=== PATIENT | male | born 1970 | race Caucasian/White ===

== ENCOUNTER 2019-04-25 00:20 | Emergency (ER) | payer OTHER ==
[2019-04-25] MEDS ORDERED: Take Home: Cyclobenzaprine 10 MG Tab, 4 Tab Pack PO ONE (01:01)
[2019-04-25] MEDS ORDERED: Take Home: Naproxen 500 MG Tab, 4 Tab Pack PO ONE (01:01)
--- NOTE | 2019-04-25 12:22 | EDM.PDOC ---
ED HPI GENERAL MEDICAL PROBLEM - General Chief Complaint: Flank Pain Stated Complaint: Left Flank Pain Time Seen by Provider: 04/25/19 00:35 Source of Information: Reports: Patient History Limitations: Reports: No Limitations - History of Present Illness INITIAL COMMENTS - FREE TEXT/NARRATIVE: Pt. presents to ER with complaints of L sided low back pain. Pt. states that the discomfort is worse with movement. Denies any specific injury but states that he works for the [employer] and does a lot of heavy lifting. Denies in saddle anesthesia or incontinence. No fever or chills. He states that the discomfort is located only on the L side. Denies any blood in his urine. Onset: Today Onset Date: 04/25/19 Location: Reports: Back Quality: Reports: Ache Left Flank Pain Score (Numeric/FACES): 4 - Related Data Allergies Allergy/AdvReac Type Severity Reaction Status Date / Time Penicillins Allergy Other Verified 04/25/19 00:30 Home Meds: Home Meds Aspirin [Adult Low Dose Aspirin EC] 81 mg PO DAILY 04/25/19 [History] Ergocalciferol (Vitamin D2) [Vitamin D2] 2,000 unit PO DAILY 04/25/19 [History] Lovastatin 20 mg PO DAILY 04/25/19 [History] Pantoprazole [ProTONIX] 40 mg PO DAILY 04/25/19 [History] Past Medical History HEENT History: Reports: Hard of Hearing Cardiovascular History: Reports: High Cholesterol Gastrointestinal History: Reports: GERD - Past Surgical History Other Male Surgeries/Procedures: Patient states he had an "infected gland" removed from his groin. Social & Family History - Tobacco Use Years of Tobacco use: 39 Packs/Tins Daily: 2 - Recreational Drug Use Recreational Drug Use: No ED ROS GENERAL - Review of Systems Review Of Systems: See Below Constitutional: Reports: No Symptoms HEENT: Reports: No Symptoms Respiratory: Reports: No Symptoms Cardiovascular: Reports: No Symptoms Endocrine: Reports: No Symptoms GI/Abdominal: Reports: No Symptoms : Reports: No Symptoms Musculoskeletal: Reports: Back Pain Skin: Reports: No Symptoms Neurological: Reports: No Symptoms Psychiatric: Reports: No Symptoms Hematologic/Lymphatic: Reports: No Symptoms Immunologic: Reports: No Symptoms ED EXAM, GENERAL - Physical Exam Exam: See Below Exam Limited By: No Limitations General Appearance: Alert, WD/WN, No Apparent Distress Head: Atraumatic, Normocephalic Neck: Normal Inspection, Supple, Non-Tender, Full Range of Motion Respiratory/Chest: No Respiratory Distress, Lungs Clear, Normal Breath Sounds, No Accessory Muscle Use, Chest Non-Tender Cardiovascular: Normal Peripheral Pulses, Regular Rate, Rhythm, No Edema, No Gallop, No JVD, No Murmur, No Rub Peripheral Pulses: 4+: Radial (R) GI/Abdominal: Normal Bowel Sounds, Soft, Non-Tender, No Organomegaly, No Distention, No Abnormal Bruit, No Mass, Pelvis Stable (Male) Exam: Deferred Rectal (Males) Exam: Deferred Back Exam: Normal Inspection, Full Range of Motion, Decreased Range of Motion, Muscle Spasm, Paraspinal Tenderness Extremities: Normal Inspection, Normal Range of Motion, Non-Tender, No Pedal Edema, Normal Capillary Refill Neurological: Alert, Oriented, CN II-XII Intact, Normal Cognition, Normal Gait, Normal Reflexes, No Motor/Sensory Deficits Skin Exam: Warm, Dry, Intact, Normal Color, No Rash Course - Vital Signs Last Recorded V/S: Last Vital Signs Temp 35.6 C 04/25/19 00:30 Pulse 81 04/25/19 00:30 Resp 14 04/25/19 00:30 BP 130/95 H 04/25/19 00:30 Pulse Ox 98 04/25/19 00:30 - Orders/Labs/Meds Labs: Laboratory Tests 04/25/19 Range/Units 00:49 Urine Color Yellow (YELLOW) POC Urine Appearance Clear (CLEAR) POC Urine pH 6.0 (5.0-8.0) Ur Specific [place] 1.020 (1.005-1.030) POC Urine Protein Negative (NEGATIVE) POC Ur Glucose (UA) Negative (NEGATIVE) POC Urine Ketones Negative (NEGATIVE) POC Ur Occult Blood Negative (NEGATIVE) POC Urine Nitrite Negative (NEGATIVE) POC Urine Bilirubin Small (NEGATIVE) POC Urine Urobilinogen 0.2 (0.2) POC U Leukocyte Esteras Negative (NEGATIVE) Meds: Medications Discontinued Medications Generic Name Dose Route Start Last Admin Trade Name Freq PRN Reason Stop Dose Admin Cyclobenzaprine HCl 1 packet 04/25/19 01:01 04/25/19 01:08 Take Home: Cyclobenzaprine 10 Mg, 4 Tab Pack PO 04/25/19 01:02 1 packet ONETIME ONE Administration Naproxen 1 packet 04/25/19 01:01 04/25/19 01:08 Take Home: Naproxen 500 Mg, 4 Tab Pack PO 04/25/19 01:02 1 packet ONETIME ONE Administration Departure - Departure Time of Disposition: 01:25 Disposition: Home, Self-Care 01 Clinical Impression: Low back pain - Discharge Information Instructions: Cyclobenzaprine tablets, Back Exercises, Naproxen and naproxen sodium oral immediate-release tablets, Acute Pain, Adult Referrals: PCP,Not In Area [Primary Care Provider] - Forms: ED Department Discharge Additional Instructions: flexeril (cyclobenzaprine) 10mg 1 tab 3 times a day for muscle spasm Naproxen 500mg 1 twice daily as needed for pain Try some of the back exercises If continuing to have trouble, follow-up with PCP for an MRI in 14 days - Assessment/Plan Plan: flexeril (cyclobenzaprine) 10mg 1 tab 3 times a day for muscle spasm Naproxen 500mg 1 twice daily as needed for pain Try some of the back exercises If continuing to have trouble, follow-up with PCP for an MRI in 14 days
== END 2019-04-25 01:25 | disposition home or self-care (01) ==
LOC: VM.ED 00:20
DX: M54.5 Low back pain (principal); E78.00 Pure hypercholesterolemia, unspecified; Z79.82 Long term (current) use of aspirin; Z79.899 Other long term (current) drug therapy; Z88.0 Allergy status to penicillin
CPT/HCPCS: 81002; 99284; A9270